=== PATIENT | male | born 1970 | race Caucasian/White ===

== ENCOUNTER 2017-07-23 22:30 | Emergency (ER) | payer MEDICAID | END 2017-07-23 23:17 | disposition home or self-care (01) | LOC: D.ER 22:30 | DX: S49.92XA Unspecified injury of left shoulder and upper arm, initial encounter (principal); V43.52XA Car driver injured in collision with other type car in traffic accident, initial encounter; Y93.89 Activity, other specified; Y92.410 Unspecified street and highway as the place of occurrence of the external cause; M25.512 Pain in left shoulder; F17.200 Nicotine dependence, unspecified, uncomplicated ==